=== PATIENT | male | born 1950 | race Caucasian/White ===

== ENCOUNTER 2019-06-30 08:21 | Emergency (ER) | payer MEDICARE, SELFPAY ==
--- NOTE | ~2019-06-30 | XR_ITS ---
EXAMINATION: XR chest 2V DATE: 06/30/2019 09:06 INDICATION: Difficulty breathing. TECHNIQUE: Frontal and lateral views of the chest were obtained. COMPARISON: None. FINDINGS: There are patchy airspace opacities in all left lung zones with a perihilar and lower lung zone predominance. There are airspace opacities in right lower lung zone with a perihilar predominanc e. There is a small left pleural effusion. No pneumothorax. The heart size is normal. IMPRESSION: 1. Airspace opacities in left lung and right lower lung zone, consistent with pneumonia versus drug r eaction versus asymmetric pulmonary edema. 2. Small left pleural effusion. Reviewed, dictated and finalized at location A. IMPRESSION: 1. Airspace opacities in left lung and right lower lung zone, consistent with p neumonia versus drug reaction versus asymmetric pulmonary edema. 2. Small left pleural effusion.
[2019-06-30 08:32] VITALS: BP 110/62; PULSE 118; RESP 24; TEMP 37.1; O2SAT 96
--- NOTE | 2019-06-30 08:38 | ED.GENADULT ---
HPI - General Adult General Chief complaint: Upper Respiratory Infection Stated complaint: Difficulty Breathing Time Seen by Provider: 06/30/19 08:50 Source: patient, family (son) and RN notes reviewed Mode of arrival: ambulatory Limitations: no limitations History of Present Illness HPI narrative: This is a 68 years old male presents to the office for an evaluation of shortness of breath for a few days. Symptoms began shortly after he went fishing on Tuesday. When he went fishing that day, it was a windy day, so his throat got scratchy and he began to cough. Then, the very next day his chest getting tight from coughing; associated with shortness of breath. Normally, per patient, he gets a little winded with walking/exertion due to chemo however this is a lot worse than his normal self. Related Data Home Medications Medication Instructions Recorded Confirmed dexamethasone 06/30/19 Allergies Allergy/AdvReac Type Severity Reaction Status Date / Time No Known Allergies Allergy Verified 06/30/19 09:00 Review of Systems Review of Systems: Narrative: CONSTITUTIONAL: Reports feeling malaise, achy and chills ENT: Reports sore throat CARDIOVASCULAR: Denies chest pain RESPIRATORY: Denies wheezing. Reports dyspnea at rest with cough GASTROINTESTINAL: Denies abdominal pain, nausea, vomiting, diarrhea. GENITOURINARY: Denies urinary symptoms SKIN: Denies rash MUSCULOSKELETAL: Denies acute back pain NEUROLOGIC: Denies lightheaded PMFSH Past Medical History Medical History (Updated 06/30/19 @ 09:33 by JOSUE Seals) Bile duct cancer Apr 2019 HTN (hypertension) no longer on med due to weight loss Social History Social History (Updated 06/30/19 @ 09:00 by JOSUE Seals) Smoking status: Never smoker Comments At time of signature, I agree with nursing past medical, surgical, social and family history. There is no relevant family history pertinent to the presenting complaint. Exam Narrative: Exam Narrative: GENERAL: This is a well-nourished, well-developed patient, chronicall ill,in no apparent distress. EYES: Sclera clear/white. Vision is grossly intact. EARS: External ears normal, auditory canals clear and without drainage, TMs normal without perforation. Hearing grossly intact. NOSE: External nose normal with no obvious nasal discharge, nares without redness, no rhinorrhea. THROAT: Mucous membranes moist, posterior pharynx clear. NECK: Neck supple, non-tender without lymphadenopathy, masses or thyromegaly. CARDIOVASCULAR: Regular rate and rhythm without murmurs, gallops, or rubs. RESPIRATORY: Slight tachypnea, clear to auscultation. Breath sounds equal bilaterally. No wheezes, rales, or rhonchi. GASTROINTESTINAL: Abdomen soft, non-tender, nondistended. Bowel sounds are active. No guarding. SKIN: warm, intact with no suspicious lesions or rash, good texture and turgor. NEURO: awake, alert, and oriented to person, place and time. There were no obvious focal neurologic abnormalities. Steady gait Elinor Coma Scale Eye Opening: Spontaneous 4 Elinor Coma Scale Motor: Obeys Commands 6 Elinor Coma Scale Verbal: Oriented 5 Course Vital Signs Vital signs: Vital Signs Temperature 98.8 F 06/30/19 08:32 Pulse Rate 118 H 06/30/19 08:32 Respiratory Rate 24 H 06/30/19 08:32 Blood Pressure 110/62 06/30/19 08:32 Pulse Oximetry 96 06/30/19 08:32 Temperature 98.8 F 06/30/19 08:32 Pulse Rate 118 H 06/30/19 08:32 Respiratory Rate 24 H 06/30/19 08:32 Blood Pressure 110/62 06/30/19 08:32 Pulse Oximetry 96 06/30/19 08:32 Medical Decision Making MDM Narrative Medical decision making narrative: I went ahead and order him outpatient COVID testing due to his clinical symptoms and his comorbidities at this time. Discharge instructions reviewed with patient and his son, as well as provided in writing per nursing staff. The instructions also include specific and strict r
== END 2019-06-30 09:38 | disposition home or self-care (01) ==
PROVIDERS: Emergency Provider Nurse Practitioner
DX: Z20.828 Contact with and (suspected) exposure to other viral communicable diseases (principal); R06.02 Shortness of breath; R05 Cough; J18.9 Pneumonia, unspecified organism
CPT/HCPCS: 71046; 99213; G0463